=== PATIENT | female | born 1985 | race Two or more races ===

== ENCOUNTER 2020-10-10 12:31 | Emergency (ER) | payer OTHER ==
[~2020-10-10] VITALS: Ht 160 cm; Wt 65.8 kg
[2020-10-10 13:45] VITALS: BP 160/90
[2020-10-10] MEDS ORDERED: Acetaminophen 500mg (ES) tab ORAL ONE (14:15)
[2020-10-10 15:15] VITALS: BP 158/86
[2020-10-10] MEDS ORDERED: IBUPROFEN600 M1 ORAL (15:32)
[2020-10-10] MEDS ORDERED: ROBAXIN-750750 MG PO (15:32)
--- NOTE | 2020-10-10 16:51 | Diagnostic Imaging Report ---
Indication: Pain, status post fall Technique: One view of the pelvis Comparison: none Findings: No acute fracture. No dislocation. The joint spaces are preserved Impression: Negative
--- NOTE | 2020-10-10 16:51 | Diagnostic Imaging Report ---
Indication: Pain, status post fall Technique: One view of the chest Comparison: none Findings: The heart is borderline enlarged. Lungs and pleural spaces are clear. Impression: No acute process
--- NOTE | 2020-10-13 06:51 | Emergency Room Report ---
History of Present Illness General Chief Complaint: Abdominal Pain Source: Patient Present Illness HPI 35-year-old female presents to ED status post fall. States 2 days ago she slipped and fell at work landed forward. Denies hitting her head or LOC. Complaining of pain to her ribs and to her hips. Dull, 6 out of 10, nonradiating. Denies any other injuries. No other aggravating relieving factors. 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 Patient History Past Medical History: none Past Surgical History: none Pertinent Family History: none Social History: Denies: smoking, alcohol use, drug use Now: No Immunizations: UTD Reviewed Nursing Documentation: PMH: Agreed; PSxH: Agreed Nursing Documentation-PMH Past Medical History: No Stated History Review of Systems All Other Systems: negative except mentioned in HPI Physical Exam Vital Signs Date Time Temp Pulse Resp B/P (MAP) Pulse Ox O2 Delivery O2 Flow Rate FiO2 10/10/20 13:20 97.9 61 18 160/90 (113) 98 Room Air Sp02 EP Interpretation: reviewed, normal General Appearance: no apparent distress, alert, GCS 15, non-toxic Head: normocephalic, atraumatic Eyes: bilateral eye normal inspection, bilateral eye PERRL ENT: hearing grossly normal, normal pharynx, no angioedema, normal voice Neck: full range of motion, supple/symm/no masses Respiratory: lungs clear, normal breath sounds, speaking full sentences, other - Reproducible rib pain Cardiovascular #1: regular rate, rhythm, no edema Cardiovascular #2: 2+ carotid (R), 2+ carotid (L), 2+ radial (R), 2+ radial (L), 2+ dorsalis pedis (R), 2+ dorsalis pedis (L) Gastrointestinal: normal bowel sounds, non tender, soft, non-distended, no guarding, no rebound Rectal: deferred Genitourinary: normal inspection, no CVA tenderness Musculoskeletal: back normal, normal range of motion, gait/station normal, tender - Hip left pelvis Neurologic: alert, motor strength/tone normal, oriented x3, sensory intact, responsive, speech normal Psychiatric: judgement/insight normal, memory normal, mood/affect normal, no suicidal/homicidal ideation Reflexes: 3+ bicep (R), 3+ bicep (L), 3+ tricep (R), 3+ tricep (L), 3+ knee (R), 3+ knee (L) Skin: no rash Lymphatic: no adenopathy Medical Decision Making Diagnostic Impression: Primary Impression: Contusion Qualified Codes: S30.0XXA - Contusion of lower back and pelvis, initial encounter Additional Impression: Fall Qualified Codes: W19.XXXA - Unspecified fall, initial encounter ER Course Hospital Course 35-year-old female presents with rib pain and hip pain status post fall Differential diagnoses include: Fracture, dislocation, sprain, contusion Clinical course Patient placed on stretcher. After initial history and physical, I ordered chest xrays of chest and pelvis. Patient given Tylenol. Xrays prelim read shows no acute fracture/dislocation. I discussed findings with patient. Reassurance given. Safe for discharge close outpatient follow-up Diagnosis - contusion, fall Stable and discharged to home with prescription for Motrin. apply ice, keep elevated. weight bear as tolerated. Followup with PMD. Return to ED if symptoms recur or worsen Chest X-Ray Diagnostic Results Chest X-Ray Diagnostic Results : Chest X-Ray Ordered: Yes # of Views/Limited/Complete: 1 View Indication: Other EP Interpretation: Yes Interpretation: no consolidation, no effusion, no pneumothorax, no acute cardiopulmonary disease Impression: No acute disease Electronically Signed by: Electronically signed by Singh Corbett MD Other X-Ray Diagnostic Results Other X-Ray Diagnostic Results : X-Ray ordered: Pelvis # of Views/Limited Vs Complete: 1 View Indication: Pain EP Interpretation: Yes Interpretation: no dislocation, no soft tissue swelling, no fractures Impression: No acute disease Electronically Signed by: Electronically signed by Singh Corbett MD Last Vital Signs Date Time Temp Pulse Resp B/P (MAP) Pulse Ox O2 Delivery O2 Flow Rate FiO2 10/10/20 15:58 78 18 Room Air 10/10/20 15:15 97.9 158/86 99 Status: improved Disposition: HOME, SELF-CARE Condition: Stable Scripts Methocarbamol* (ROBAXIN-750*) 750 Mg Tablet 750 MG PO TID, #21 TAB 0 Refills Prov: Singh Corbett MD 10/10/20 Ibuprofen* (MOTRIN*) 600 Mg Tablet 600 MG ORAL Q8H PRN for FOR PAIN, #30 TAB 0 Refills Prov: Singh Corbett MD 10/10/20 Referrals: NOT CHOSEN IPA/,REFERRING (PCP) [facility] Patient Instructions: Contusion-[facility] Singh Corbett MD Oct 13, 2020 06:51
== END 2020-10-10 15:15 | disposition home or self-care (01) ==
LOC: EMR 13:30
DX: S30.0XXA Contusion of lower back and pelvis, initial encounter (principal); W01.0XXA Fall on same level from slipping, tripping and stumbling without subsequent striking against object, initial encounter; Y93.9 Activity, unspecified; Y92.9 Unspecified place or not applicable
CPT/HCPCS: 71045; 72170; 81025; 99284